=== PATIENT | female | born 1995 | race African-American/Black ===

== ENCOUNTER → 2017-10-12 | Outpatient (CLI) | payer OTHER | LOC: BRMIMAGING 09:52 | PROVIDERS: ATTEND Registered Nurse | DX: N64.4 Mastodynia (principal) | CPT/HCPCS: 76641-PO ==

== ENCOUNTER → 2017-12-01 | Outpatient (CLI) | payer OTHER | LOC: BRMIMAGING 10:37 | PROVIDERS: ATTEND Family Medicine | DX: M25.512 Pain in left shoulder (principal) | CPT/HCPCS: 73030-PO ==